=== PATIENT | male | born 1975 | race Caucasian/White ===

== ENCOUNTER 2019-06-06 22:30 | Inpatient (IN) | payer SELFPAY ==
[2019-06-06 22:40] VITALS: BMI 52.8
[2019-06-06] MEDS ORDERED: morphine SULFATE 4 MG/ML VIAL IVPUSH ONE (22:46)
[2019-06-06 22:54] LABS: HYALINE CASTS 9 /lpf (0-8); PH,URINE 8.5 (5.0-8.0); URINE APPEARANCE TURBID; URINE BACTERIA 10.3 /hpf (NEGATIVE); URINE BILIRUBIN NEGATIVE (NEGATIVE); URINE COLOR RED; URINE GLUCOSE (UA) NEGATIVE (NEGATIVE); URINE KETONE NEGATIVE (NEGATIVE); URINE LEUK ESTERASE 1+ (NEGATIVE); URINE NITRITE NEGATIVE (NEGATIVE); URINE PROTEIN 2+ (NEGATIVE); URINE RBC 2111 /hpf (0-4); URINE WBC 5 /hpf (0-5)
[2019-06-06 23:03] LABS: BASO % 0.3 % (0-2.0); HEMOGLOBIN 10.6 GM/dL (11.7-16.9); LYMPH % 6.8 % (8-40); MCH 27.1 pg (25.7-33.7); MCHC 33.1 g/dl (32.0-35.9); MEAN CELL VOLUME 81.8 fl (80-96); MEAN PLT VOLUME 7.7 fl (7.5-11.1); MONO % 9.8 % (3.8-10.2); NEUT % 83.1 % (42.8-82.8); PLATELET COUNT 286 K/MM3 (134-434); RBC 3.91 M/mm3 (4.00-5.60); RDW 16.1 % (11.9-15.9)
[2019-06-06] MEDS ORDERED: morphine SULFATE 4 MG/ML VIAL ONE ×2 (23:03→23:40)
--- NOTE | 2019-06-06 23:11 | PDOC ---
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 Patient was in [place] 2 days ago on vacation and was found to have a L 9mm obstructing renal calculus, was admitted to hospital for L ureteral stent placement and lithotripsy. Discharged on Tylenol, Percocet, flomax, Ditropan, and Keflex and advised that stone fragments may continue to be passed. Returned to [place] today and suddenly began experiencing LLQ and flank pain with gross hematuria, took pain medications without effect and presented to ED. 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 Given Vit K and has not taken Coumadin in last 2 days, scheduled to be switched to lovenox tomorrow Denies headache, chest pain, SOB, nausea, vomiting, constipation, diarrhea. Allergy to NSAIDs, anaphylaxis. Acute dystonic reaction to Reglan. <Stewart Javier - Last Filed: 06/07/19 19:29> - General Chief Complaint: Pain, Acute Stated Complaint: KIDNEY STONES Time Seen by Provider: 06/06/19 22:32 Past History <Susanne Man - Last Filed: 06/07/19 02:39> - Past Medical History COPD: No - Surgical History Cholecystectomy: Yes - Immunization History Td Vaccination: Yes TDAP Vaccination: Yes Immunization Up to Date: Yes - Suicide/Smoking/Psychosocial Hx Smoking History: Current every day smoker Cigars Per Day: 1 Information on smoking cessation initiated: No Hx Alcohol Use: No Drug/Substance Use Hx: No <Stewart Javier - Last Filed: 06/07/19 19:29> - Past Medical History Allergies/Adverse Reactions: Allergies Allergy/AdvReac Type Severity Reaction Status Date / Time NSAIDS (Non-Steroidal Allergy Severe Difficulty Verified 06/06/19 22:49 Anti-Inflamma Breathing metoclopramide [From Reglan] AdvReac Mild Verified 06/06/19 22:49 Home Medications: Ambulatory Orders Cephalexin [Keflex] 750 mg PO BID 06/07/19 Oxybutynin Chloride [Ditropan -] 5 mg PO DAILY 06/07/19 Oxycodone HCl/Acetaminophen [Percocet 5-325 mg Tablet] 1 tab PO Q6H 06/07/19 Tamsulosin HCl [Flomax] 0.4 mg PO DAILY 06/07/19 Warfarin Sodium [Coumadin] 7.5 mg PO DAILY 06/07/19 Review of Systems - Review of Systems Constitutional: Yes: Diaphoresis. No: Chills, Fever, Weakness HEENTM: No: Blurred Vision, Ear Discharge, Nose Congestion, Hearing Loss Respiratory: No: Cough, Orthopnea, Shortness of Breath, Wheezing Cardiac (ROS): No: Chest Pain, Edema, Lightheadedness, Palpitations ABD/GI: No: Constipated, Diarrhea, Nausea, Vomiting : Yes: Dysuria, Flank Pain, Hematuria. No: Discharge Musculoskeletal: No: Back Pain, Muscle Weakness, Neck Pain Integumentary: No: Symptoms Reported Neurological: No: Symptoms reported All Other Systems: Reviewed and Negative <Stewart Javier - Last Filed: 06/07/19 19:29> *Physical Exam - Vital Signs Last Vital Signs Temp Pulse Resp BP Pulse Ox 99.1 F 62 18 142/93 97 06/06/19 22:36 06/07/19 01:35 06/07/19 01:35 06/07/19 01:35 06/07/19 01:35 <Susanne Man - Last Filed: 06/07/19 02:39> - Vital Signs Last Vital Signs Temp Pulse Resp BP Pulse Ox 99.1 F 61 20 141/75 98 06/06/19 22:36 06/06/19 22:36 06/06/19 22:36 06/06/19 22:36 06/06/19 22:36 - Physical Exam General Appearance: Yes: Nourished, Appropriately Dressed, Moderate Distress, Obese HEENT: positive: EOMI, Normal ENT Inspection, Normal Voice, Symmetrical, Pharynx Normal, Hearing Grossly Normal. negative: Scleral Icterus (R), Scleral Icterus (L), Excessive drooling Neck: positive: Trachea midline, Supple. negative: Tender, Lymphadenopathy (R) , Lymphadenopathy (L) Respiratory/Chest: positive: Lungs Clear, Normal Breath Sounds. negative: Chest Tender, Respiratory Distress Cardiovascular: positive: Regular Rhythm, Regular Rate, Edema Gastrointestinal/Abdominal: positive: Normal Bowel Sounds, Tender (L CVA tenderness that extends to the L groin. Non-tender R side, negative Guillory's Sign, no organomegaly.), Soft, Organomegaly Musculoskeletal: positive: CVA Tenderness (L) Extremity: positive: Normal Capillary Refill, Normal Inspection, Normal Range of Motion. negative: Tender Integumentary: positive: Normal Color, Dry, Warm Neurologic: positive: Fully Oriented, Alert, Normal Mood/Affect, Normal Response <Stewart Javier - Last Filed: 06/07/19 19:29> ED Treatment Course - LABORATORY CBC & Chemistry Diagram: 06/06/19 22:58 06/06/19 22:58 - ADDITIONAL ORDERS Additional order review: Laboratory Results 06/06/19 06/06/19 06/06/19 22:58 22:58 22:44 PT with INR INR Sodium 140 Potassium 4.1 Chloride 106 Carbon Dioxide 28 Anion Gap 6 L BUN 13.2 Creatinine 0.9 Est GFR (CKD-EPI)AfAm 119.13 Est GFR (CKD-EPI)NonAf 102.79 Random Glucose 136 H Calcium 9.0 Total Bilirubin 0.2 AST 24 ALT 38 Alkaline Phosphatase 109 Total Protein 7.1 Albumin 3.7 Lipase 123 Urine Color Red Urine Appearance Turbid Urine pH 8.5 H Ur Specific [place] 1.020 Urine Protein 2+ H Urine Glucose (UA) Negative Urine Ketones Negative Urine Blood 3+ H Urine Nitrite Negative Urine Bilirubin Negative Urine Urobilinogen 1.0 Ur Leukocyte Esterase 1+ H Urine WBC (Auto) 5 Urine RBC (Auto) 2111 Urine Casts (Auto) 9 U Epithel Cells (Auto) 6.0 U Sm Round Cell (Auto) None seen Urine Bacteria (Auto) 10.3 06/06/19 22:40 PT with INR 11.80 INR 1.00 Sodium Potassium Chloride Carbon Dioxide Anion Gap BUN Creatinine Est GFR (CKD-EPI)AfAm Est GFR (CKD-EPI)NonAf Random Glucose Calcium Total Bilirubin AST ALT Alkaline Phosphatase Total Protein Albumin Lipase Urine Color Urine Appearance Urine pH Ur Specific [place] Urine Protein Urine Glucose (UA) Urine Ketones Urine Blood Urine Nitrite Urine Bilirubin Urine Urobilinogen Ur Leukocyte Esterase Urine WBC (Auto) Urine RBC (Auto) Urine Casts (Auto) U Epithel Cells (Auto) U Sm Round Cell (Auto) Urine Bacteria (Auto) 06/06/19 22:58 RBC 3.91 L MCV 81.8 MCHC 33.1 RDW 16.1 H MPV 7.7 Neutrophils % 83.1 H Lymphocytes % 6.8 L Monocytes % 9.8 Eosinophils % 0.0 Basophils % 0.3 - Medications Given in the ED: ED Medications Discontinued Medications Generic Name Dose Route Start Last Admin Trade Name Traci PRN Reason Stop Dose Admin Acetaminophen 1,000 mg 06/07/19 01:42 06/07/19 01:50 Ofirmev Injection - IVPB 06/07/19 01:43 1,000 mg ONCE ONE Administration Hydromorphone HCl 1 mg 06/07/19 00:54 06/07/19 01:00 Dilaudid Injection - IVPUSH 06/07/19 00:55 1 mg ONCE ONE Administration Hydromorphone HCl 2 mg 06/07/19 02:24 06/07/19 02:30 Dilaudid Injection - IVPB 06/07/19 02:25 2 mg ONCE ONE Administration Ceftriaxone Sodium 1,000 mg/ 50 mls @ 100 mls/hr 06/07/19 01:39 06/07/19 01: 48 Dextrose IVPB 06/07/19 02:08 100 mls/hr ONCE ONE Administration Morphine Sulfate 4 mg 06/06/19 22:46 06/06/19 23:05 Morphine Sulfate IVPUSH 06/06/19 22:47 4 mg ONCE ONE Administration Morphine Sulfate 4 mg 06/06/19 23:39 06/06/19 23:48 Morphine Injection - IVPUSH 06/06/19 23:40 4 mg ONCE ONE Administration <Susanne Man - Last Filed: 06/07/19 02:39> - LABORATORY CBC & Chemistry Diagram: 06/06/19 22:58 06/06/19 22:58 - ADDITIONAL ORDERS Additional order review: Laboratory Results 06/06/19 22:44 Urine Color Red Urine Appearance Turbid Urine pH 8.5 H Ur Specific Brent 1.020 Urine Protein 2+ H Urine Glucose (UA) Negative Urine Ketones Negative Urine Blood 3+ H Urine Nitrite Negative Urine Bilirubin Negative Urine Urobilinogen 1.0 Ur Leukocyte Esterase 1+ H Urine WBC (Auto) 5 Urine RBC (Auto) 2111 Urine Casts (Auto) 9 U Epithel Cells (Auto) 6.0 Urine Bacteria (Auto) 10.3 - RADIOLOGY Radiology Studies Ordered: Category Date Time Status SPIRAL- RENAL-STONE CT [CT] Stat CT Scan 06/06/19 22:46 Ordered <Stewart Javier - Last Filed: 06/07/19 19:29> Medical Decision Making - Medical Decision Making 06/06/19 23:03 Liam Son is a 44yo male with 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 Patient presenting with hematuria and L flank and abdominal pain after L renal stone lithostripsy and L ureteral stent placement concerning for repeat obstructing stone vs. stent malfunction vs. traumatic injury during stent placement. Evaluating with CMP, CBC, lipase, UA/UC, and spiral renal CT. Gave 4mg IV morphine for pain 06/06/19 23:50 Gave second 4mg IV morphine for pain before CT scan. 06/07/19 01:07 CT scan shows L ureteral stent in place with unobstructing L renal stone with some L perinephric stranding possibly indicating ureteritis. Given 1mg Dilaudid for 10/[address] scan. 06/07/19 01:[address] Tinajero with Urology, unclear about etiology of pain but admit for observation for bleeding. Recommendation is to not restart anticoagulation given bleeding. Starting 1mg IV ceftriaxone for concern for ureteritis. Starting 1000mg IV acetaminophen for intractable pain. 06/07/19 02:[address] Michel with medicine team for admission under Dr. Prater with urology f/u tomorrow. <Stewart Javier - Last Filed: 06/07/19 19:29> *DC/Admit/Observation/Transfer - Discharge Dispostion Decision to Admit order: Yes <Susanne Man - Last Filed: 06/07/19 02:39> <Stewart Javier - Last Filed: 06/07/19 19:29> Diagnosis at time of Disposition: Abdominal pain Qualifiers: Abdominal location: left lower quadrant Qualified Code(s): R10.32 - Left lower quadrant pain Hematuria Qualifiers: Hematuria type: gross Qualified Code(s): R31.0 - Gross hematuria - Discharge Dispostion Condition at time of disposition: Fair
[2019-06-06 23:35] LABS: PROTHROMBIN TIME (PATIENT) 11.8 SEC (9.7-13.0)
[2019-06-06 23:37] LABS: ALBUMIN 3.7 g/dl (3.4-5.0); BILIRUBIN,TOTAL 0.2 mg/dL (0.2-1); BLOOD UREA NITROGEN 13.2 mg/dL (7-18); CREATININE 0.9 mg/dL (0.55-1.3); POTASSIUM 4.1 mmol/L (3.5-5.1); TOT PROT 7.1 g/dl (6.4-8.2)
[2019-06-06] MEDS ORDERED: morphine CARPU-JECT 4 MG/1 ML DISP.SYRIN IVPUSH ONE (23:39)
[2019-06-07] MEDS ORDERED: HYDROmorphone HCL CARPU-JECT 2 MG/1 ML DISP.SYRIN IVPUSH ONE (00:54)
[2019-06-07] MEDS ORDERED: HYDROmorphone HCl 2 MG/ML VIAL ONE ×2 (00:58→02:27)
--- NOTE | 2019-06-07 01:25 | PDOC ---
Documentation entered by Laith Trujillo SCRIBE, acting as scribe for Susanne Man MD. Susanne Man MD: This documentation has been prepared by the Ronnie nevarez Xhesika, SCRIBE, under my direction and personally reviewed by me in its entirety. I confirm that the documentation accurately reflects all work, treatment, procedures, and medical decision making performed by me. Attending Attestation - Resident Resident Name: YayaStewart - ED Attending Attestation I have performed the following: I have examined & evaluated the patient, The case was reviewed & discussed with the resident, I agree w/resident's findings & plan, Exceptions are as noted - HPI HPI: 06/06/19 23:02 The patient is a 44 year old male with a significant PMH of DVT/PE (not anticoagulated due to procedure) who presents to the emergency department s/p kidney stone complications. Patient states he was in [place] when he was seen in the ED, was told he had a 9mm kidney stone and had a L ureteral stent placement. Patient was sent home with improvement of symptoms (taking tylenol and percocet). Patient notes he got home today and notes he has been endorsing hematuria. The patient denies chest pain, shortness of breath, headache and dizziness. Denies fever, chills, cough, nausea, vomiting, diarrhea and constipation. Denies dysuria, frequency, urgency. Allergies: NSAIDS, metoclopramide 06/07/19 01:22 - Physicial Exam PE: 06/07/19 01:20 awake alert lungs clear bilat heart rrrr no mrg abd soft nt nd ext wwp. left cva tenderness. nuero alert oriented x 3 - Medical Decision Making 06/07/19 01:21 44 yo male h/o renal colic, s/p lithotripsy and stent placement yesterday in [place] here with c/o pain , hematuria. plan ct r/o stent dislodged, ua / pt ua with hematuria. ct with stent in place, no stone. pt with significant pain in ed, requiring narcotics. on ct mild irritation stranding around ureter, dilation ureter, renal sont no ureteral stone. air in bladder. plan consult urology, reassess pain.
[2019-06-07] MEDS ORDERED: CEFTRIAXONE 1,000 MG in DEXTROSE 5%-WATER - 50 ML IVPB ONE (01:39)
[2019-06-07] MEDS ORDERED: ACETAMINOPHEN 1000 MG/100 ML VIAL (NON FORMULARY) IVPB ONE (01:42)
[2019-06-07] MEDS ORDERED: ACETAMINOPHEN INJECTION 100 ML IVPB ONE (01:44)
[2019-06-07] MEDS ORDERED: CEFTRIAXONE 1 GM/50 ML BAG ONE (01:44)
[2019-06-07] MEDS ORDERED: HYDROmorphone HCL CARPU-JECT 2 MG/1 ML DISP.SYRIN IVPB ONE (02:24)
--- NOTE | 2019-06-07 02:48 | PN ---
Teaching Attending Note Name of Resident: Nettie Michel ATTENDING PHYSICIAN STATEMENT I saw and evaluated the patient. I reviewed the resident's note and discussed the case with the resident. I agree with the resident's findings and plan as documented. SUBJECTIVE: Patient is a 44 year old man with PMH of NSAID allergy, bilateral DVT and PE ( on coumadin) who presents with left flank pain and hematuria. Recently diagnosed with ureteral stone and had a stent placed. Patient was in [place] 2 days ago on vacation and was found to have a left 9mm obstructing renal calculus. Had ureteral stent placement and lithotripsy. Discharged on Tylenol, Percocet, Flomax, Ditropan, and Keflex and advised that stone fragments may continue to be passed. Returned to [place] today and suddenly began experiencing LLQ and flank pain with gross hematuria, took pain medications without effect and presented to ER. Has PMH bilateral DVT with PE ?due to work-related immobility. 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 Denies SOB or leg pain at this time. Given Vit K and has not taken Coumadin in last 2 days, scheduled to be switched to lovenox tomorrow. Has family history of thalassemia, uric acid stone and premature CAD. Denies headache, chest pain, SOB, nausea, vomiting , constipation or diarrhea. OBJECTIVE: Alert and in a lot of pain Vital Signs Period Temp Pulse Resp BP Sys/Gordon Pulse Ox Last 24 Hr 99.1 F 61-62 18-20 141-142/75-93 97-98 HEENT: No Jaundice, eye redness or discharge, PERRLA, EOMI. Normocephalic, atraumatic. External ears are normal and hearing is grossly intact. No nasal discharge. Neck: Supple, nontender. No palpable adenopathy or thyromegaly. No JVD Chest: Good effort. Clear to auscultation and percussion. Heart: Regular. No S3, rub or murmur Abdomen: Not distended, soft, left CVAT and no HSM. No rebound or guarding. Normal bowel sounds. Ext: Peripheral pulses intact. No leg edema. Skin: Warm and dry. No petechiae, rash or ecchymosis. Neuro: Alert. Oriented x3. CN 2-12 grossly intact. Sensation grossly intact in all four extremities and DTR are symmetric. Psych: Appropriate mood and affect. Good insight. Home Medications Medication Instructions Recorded Cephalexin [Keflex] 750 mg PO BID 06/07/19 Oxybutynin Chloride [Ditropan -] 5 mg PO DAILY 06/07/19 Oxycodone HCl/Acetaminophen 1 tab PO Q6H 06/07/19 [Percocet 5-325 mg Tablet] Tamsulosin HCl [Flomax] 0.4 mg PO DAILY 06/07/19 Warfarin Sodium [Coumadin] 7.5 mg PO DAILY 06/07/19 Abnormal Lab Results 06/06/19 06/06/19 06/06/19 22:44 22:58 22:58 RBC 3.91 L Hgb 10.6 L Hct 32.0 L RDW 16.1 H Neutrophils % 83.1 H Lymphocytes % 6.8 L Anion Gap 6 L Random Glucose 136 H Urine pH 8.5 H Urine Protein 2+ H Urine Blood 3+ H Ur Leukocyte Esterase 1+ H ASSESSMENT AND PLAN: 1. Hematuria/Kidney stone disease - Will treat with IV NS, flomax, dilaudid for pain control and keep him NPO. Will treat wit IV Rocephin pending urine culture. EKG shows NSR with LVH, prolonged QTc and flat t waves in the inferolateral leads. Initial troponin is negative - will repeat EKG and troponin to rule out ACS in view of FH of premature CAD. Urology consult pending. Will continue to hold coumadin that he was getting for remote DVT and PE. Restart anticoagulation as soon as is clinically safe. Upon discharge will refer to team supervisor to do work up for stone disease risk factor. 2. Anemia - Likely due to hematuria. Will do basic anemia work up including serial stool guaiacs, reticulocyte count and iron studies. Would benefit from IV iron once intensity of iron deficiency is established. 3. Morbid Obesity Counseled on the risks associated with obesity. Will provide patient all the necessary assistance, counseling and positive reinforcement to facilitate weight loss. Consult executive chef. 4. DVT prophylaxis - SCD, early ambulation. 5. Advance directives - Full code
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
[2019-06-07] MEDS ORDERED: morphine CARPU-JECT 4 MG/1 ML DISP.SYRIN IVPUSH PRN (04:50)
[2019-06-07] MEDS ORDERED: MORPHINE SULFATE 2 MG/ML VIAL IVPUSH PRN ×2 (04:54→06:14)
[2019-06-07] MEDS ORDERED: HYDROmorphone HCl 2 MG/ML VIAL IVPUSH ONE (05:10)
[2019-06-07] MEDS ORDERED: TAMSULOSIN HCL 0.4 MG CAP PO ONE (05:11)
[2019-06-07] MEDS: SODIUM CHLORIDE 1,000 ML IV SCH (05:27)
[2019-06-07] MEDS ORDERED: HYDROmorphone HCl 2 MG/ML VIAL IVPB PRN (08:53)
--- NOTE | 2019-06-07 09:25 | RAPID ---
Physical Examination Vital Signs: Vital Signs Temperature 97.6 F 06/07/19 04:46 Pulse Rate 59 L 06/07/19 04:46 Respiratory Rate 22 H 06/07/19 04:46 Blood Pressure 144/87 06/07/19 04:46 O2 Sat by Pulse Oximetry (%) 98 06/07/19 03:41 Labs: CBC, BMP 06/06/19 22:58 06/06/19 22:58 Rapid Response - Rapid Response Assessment: SUBJECTIVE: 44 y.o. M, PMH bilateral DVT and PE (currently off coumadin). Presented for L flank pain, hematuria, NBNB emesis x 3. S/p JJ stent placement a few days ago for L obstructing renal calculus. Rapid response paged overhead 8:45am. Code team responded immediately. On arrival, patient was sitting up in a chair. He was breathing rapidly and stated he was in pain. Nurse says intractable pain has been present all night. Patient received 8mg morphine, 1g Ofirmev, 3mg Dilaudid since admission with no relief of pain. OBJECTIVE: General: AOx3. Sitting up in chair. In distress, gripping L side Resp: CTABL. Tachypnic. Symmetrical chest rise. No use of accessory muscles of breathing CV: S1S2 hears. No MRG. Abd: Soft NTND. BS+ Extr: 2+ pulses well perfused. No skin changes. No periph edema. Vitals on arrival: BP 148/112 HR 80 T98F RR 30 SaO2 96% RA PLAN: #Pain control -Dilaudid 1mg given -Afebrile, Normocardic -Monitor vitals -Filaudid 1mg q3h PRN -Primary care team notified
[2019-06-07] MEDS ORDERED: OXYBUTYNIN CHLORIDE 5 MG TABLET PO SCH (10:00)
[2019-06-07] MEDS: HYDROmorphone HCl 2 MG/ML VIAL IVPUSH PRN ×4 (12:00→21:00)
--- NOTE | 2019-06-07 19:10 | HOSP ---
Subjective - Review of Symptoms Events since last encounter: Patient is feeling better on IV Dilaudid. no fever or chills, no shortness of breath. Vital Signs Temperature 98.2 F 06/07/19 14:07 Pulse Rate 68 06/07/19 14:07 Respiratory Rate 20 06/07/19 14:07 Blood Pressure 154/96 06/07/19 14:07 O2 Sat by Pulse Oximetry (%) 99 06/07/19 09:00 CBCD WBC 8.0 K/mm3 (4.0-10.0) 06/06/19 22:58 RBC 3.91 M/mm3 (4.00-5.60) L 06/06/19 22:58 Hgb 10.6 GM/dL (11.7-16.9) L 06/06/19 22:58 Hct 32.0 % (35.4-49) L 06/06/19 22:58 MCV 81.8 fl (80-96) 06/06/19 22:58 MCHC 33.1 g/dl (32.0-35.9) 06/06/19 22:58 RDW 16.1 % (11.9-15.9) H 06/06/19 22:58 Plt Count 286 K/MM3 (134-434) 06/06/19 22:58 MPV 7.7 fl (7.5-11.1) 06/06/19 22:58 CMP Sodium 140 mmol/L (136-145) 06/06/19 22:58 Potassium 4.1 mmol/L (3.5-5.1) 06/06/19 22:58 Chloride 106 mmol/L (98-107) 06/06/19 22:58 Carbon Dioxide 28 mmol/L (21-32) 06/06/19 22:58 Anion Gap 6 MMOL/L (8-16) L 06/06/19 22:58 BUN 13.2 mg/dL (7-18) 06/06/19 22:58 Creatinine 0.9 mg/dL (0.55-1.3) 06/06/19 22:58 Random Glucose 136 mg/dL (74-106) H 06/06/19 22:58 Calcium 9.0 mg/dL (8.5-10.1) 06/06/19 22:58 Total Bilirubin 0.2 mg/dL (0.2-1) 06/06/19 22:58 AST 24 U/L (15-37) 06/06/19 22:58 ALT 38 U/L (13-61) 06/06/19 22:58 Alkaline Phosphatase 109 U/L (45-117) 06/06/19 22:58 Total Protein 7.1 g/dl (6.4-8.2) 06/06/19 22:58 Albumin 3.7 g/dl (3.4-5.0) 06/06/19 22:58 Current Medications Generic Name Dose Route Start Last Admin Trade Name Freq PRN Reason Stop Dose Admin Hydromorphone HCl 2 mg 06/07/19 14:31 06/07/19 17:58 Dilaudid Vial - IVPUSH 2 mg Q3H PRN Administration PAIN LEVEL 6-10 Sodium Chloride 1,000 mls @ 75 mls/hr 06/07/19 04:45 06/07/19 05:27 Normal Saline - IV 75 mls/hr ASDIR JOSELO Administration Physical Examination Vital Signs: Vital Signs Temperature 98.2 F 06/07/19 14:07 Pulse Rate 68 06/07/19 14:07 Respiratory Rate 20 06/07/19 14:07 Blood Pressure 154/96 06/07/19 14:07 O2 Sat by Pulse Oximetry (%) 99 06/07/19 09:00 Labs: CBC, BMP 06/06/19 22:58 06/06/19 22:58
[2019-06-07] MEDS ORDERED: HYDROmorphone HCl 2 MG/ML VIAL IVPB ONE (22:19)
[2019-06-08] MEDS ORDERED: ACETAMINOPHEN 1000 MG/100 ML VIAL (NON FORMULARY) IVPB ONE (00:56)
[2019-06-08] MEDS ORDERED: HYDROmorphone HCl 2 MG/ML VIAL IVPUSH ONE (01:08)
[2019-06-08] MEDS: HYDROmorphone HCl 2 MG/ML VIAL IVPUSH PRN ×6 (06:00→17:51)
[2019-06-08] MEDS: SODIUM CHLORIDE 1,000 ML IV SCH (06:05)
[2019-06-08 07:48] LABS: BASO % 0.9 % (0-2.0); EOS % 3.8 % (0-4.5); HEMATOCRIT 31.4 % (35.4-49); HEMOGLOBIN 10.4 GM/dL (11.7-16.9); LYMPH % 17.6 % (8-40); MCH 27.2 pg (25.7-33.7); MEAN CELL VOLUME 82.4 fl (80-96); MEAN PLT VOLUME 7.8 fl (7.5-11.1); MONO % 15.4 % (3.8-10.2); NEUT % 62.3 % (42.8-82.8); PLATELET COUNT 280 K/MM3 (134-434); RBC 3.81 M/mm3 (4.00-5.60); RDW 16.3 % (11.9-15.9); WHITE BLOOD COUNT 5.4 K/mm3 (4.0-10.0)
[2019-06-08 08:00] LABS: INR 0.94 (0.83-1.09); PROTHROMBIN TIME (PATIENT) 11.1 SEC (9.7-13.0)
[2019-06-08 08:03] LABS: ACTIVATED PTT 25.8 SECONDS (25.2-36.5)
[2019-06-08 08:28] LABS: ALBUMIN 3.6 g/dl (3.4-5.0); BILIRUBIN,TOTAL 0.2 mg/dL (0.2-1); BLOOD UREA NITROGEN 14.8 mg/dL (7-18); CALCIUM 8.4 mg/dL (8.5-10.1); CREATININE 0.8 mg/dL (0.55-1.3); MAGNESIUM 2.3 mg/dL (1.8-2.4); POTASSIUM 4.1 mmol/L (3.5-5.1); TOT PROT 6.6 g/dl (6.4-8.2)
[2019-06-08] MEDS ORDERED: DEXTROSE 5%-WATER 100 ML IVPB ONE (09:05)
[2019-06-08] MEDS: CEFTRIAXONE 2 GM in DEXTROSE 5%-WATER 100 ML IVPB SCH (09:12)
--- NOTE | 2019-06-08 10:55 | PN ---
Physical Exam: SUBJECTIVE: Patient seen and examined at bedside. Pt's pain improved from yesterday. OBJECTIVE: Vital Signs Period Temp Pulse Resp BP Sys/Gordon Pulse Ox Last 24 Hr 98 F-98.2 F 68-86 16-20 122-154/73-96 99-99 GENERAL: The patient is awake, alert, and fully oriented, in no acute distress. HEAD: Normal with no signs of trauma. NECK: supple. LUNGS: Breath sounds equal, clear to auscultation bilaterally, no wheezes, no crackles, no accessory muscle use. HEART: Regular rate and rhythm, S1, S2 without murmur, rub or gallop. ABDOMEN: Soft, nontender, nondistended, normoactive bowel sounds, no guarding, no rebound. LT CVA tenderness ill present EXTREMITIES: 2+ pulses, warm, well-perfused, no edema. NEUROLOGICAL: Cranial nerves II through XII grossly intact. Normal speech, gait not observed. PSYCH: Normal mood, normal affect. SKIN: Warm, dry, no rashes or lesions noted Laboratory Results - last 24 hr 06/08/19 06/08/19 06/08/19 06:30 06:30 06:30 WBC 5.4 RBC 3.81 L Hgb 10.4 L Hct 31.4 L MCV 82.4 MCH 27.2 MCHC 33.0 RDW 16.3 H Plt Count 280 MPV 7.8 Absolute Neuts (auto) 3.4 Neutrophils % 62.3 D Lymphocytes % 17.6 D Monocytes % 15.4 H Eosinophils % 3.8 D Basophils % 0.9 Nucleated RBC % 0 PT with INR 11.10 INR 0.94 PTT (Actin FS) 25.8 Sodium 140 Potassium 4.1 Chloride 106 Carbon Dioxide 28 Anion Gap 6 L BUN 14.8 Creatinine 0.8 Est GFR (CKD-EPI)AfAm 125.04 Est GFR (CKD-EPI)NonAf 107.88 Random Glucose 91 Calcium 8.4 L Phosphorus 4.0 Magnesium 2.3 Total Bilirubin 0.2 AST 22 ALT 35 Alkaline Phosphatase 100 Total Protein 6.6 Albumin 3.6 Active Medications Generic Name Dose Route Start Last Admin Trade Name Freq PRN Reason Stop Dose Admin Hydromorphone HCl 2 mg 06/07/19 14:31 06/08/19 09:02 Dilaudid Vial - IVPUSH 2 mg Q3H PRN Administration PAIN LEVEL 6-10 Sodium Chloride 1,000 mls @ 75 mls/hr 06/07/19 04:45 06/08/19 06:05 Normal Saline - IV Not Given ASDIR JOSELO Ceftriaxone Sodium 2 gm/ 100 mls @ 200 mls/hr 06/08/19 10:00 06/08/19 09:12 Dextrose IVPB 200 mls/hr DAILY JOSELO Administration Protocol ASSESSMENT/PLAN: This is a 44 y/o M with a PMH of b/l PE's and renal calculi who presented to the ED for new onset gross hematuria and dysuria s/p laser lithotripsy and JJ stent in [place]. #Acute hematuria due to renal calculus - s/p JJ stent - CT abd pelvis in [place] showing L 1 mm nonobstructive renal calculus in RT lower pole, no hydro. - uro consulted (Dr. Ward) awaiting recs. - still has gross hematuria off all AC, PT/INR ordered, will bridge him post op - IV ceftriaxone 2g daily - IV NS 75cc/hr - dilaudid for pain - monitor H&H, vitals #PE - hold lovenox and coumadin for now. - PT/INR ordered - will continue post op. #FEN- IV NS 75cc/hr, monitoring lytes, regular diet Visit type - Emergency Visit Emergency Visit: Yes ED Registration Date: 06/07/19 Care time: The patient presented to the Emergency Department on the above date and was hospitalized for further evaluation of their emergent condition. - New Patient This patient is new to me today: No - Critical Care Critical Care patient: No - Discharge Referral Referred to [facility] No ATTENDING PHYSICIAN STATEMENT I saw and evaluated the patient. I reviewed the resident's note and discussed the case with the resident. I agree with the resident's findings and plan as documented. SUBJECTIVE: OBJECTIVE: ASSESSMENT AND PLAN:
--- NOTE | 2019-06-08 11:37 | EKG ---
Test Reason : Blood Pressure : / mmHG Vent. Rate : 061 BPM Atrial Rate : 061 BPM P-R Int : 166 ms QRS Dur : 090 ms QT Int : 460 ms P-R-T Axes : 009 002 003 degrees QTc Int : 463 ms NORMAL SINUS RHYTHM VOLTAGE CRITERIA FOR LEFT VENTRICULAR HYPERTROPHY NONSPECIFIC T WAVE ABNORMALITY PROLONGED QT ABNORMAL ECG NO PREVIOUS ECGS AVAILABLE Confirmed by HOWARD LIN MD ([id number]) on 06/08/2019 11:37:41 AM Referred By: Confirmed By:HOWARD LIN MD
[2019-06-08] MEDS ORDERED: ENOXAPARIN NA (PORCINE) 80 MG/0.8 ML DISP.SYRIN SQ ONE (19:00)
--- NOTE | 2019-06-08 19:06 | PN ---
Teaching Attending Note Name of Resident: Thang Ward ATTENDING PHYSICIAN STATEMENT I saw and evaluated the patient. I reviewed the resident's note and discussed the case with the resident. I agree with the resident's findings and plan as documented. SUBJECTIVE: Patient is feeling better, minimal hematuria as per patient. No tachycardia, no nausea or vomiting. asking for increase of his dilaudid. OBJECTIVE: Vital Signs Temperature 98.7 F 06/08/19 15:17 Pulse Rate 85 06/08/19 15:17 Respiratory Rate 18 06/08/19 15:17 Blood Pressure 139/63 06/08/19 15:17 O2 Sat by Pulse Oximetry (%) 98 06/08/19 09:00 CBCD WBC 5.4 K/mm3 (4.0-10.0) 06/08/19 06:30 RBC 3.81 M/mm3 (4.00-5.60) L 06/08/19 06:30 Hgb 10.4 GM/dL (11.7-16.9) L 06/08/19 06:30 Hct 31.4 % (35.4-49) L 06/08/19 06:30 MCV 82.4 fl (80-96) 06/08/19 06:30 MCHC 33.0 g/dl (32.0-35.9) 06/08/19 06:30 RDW 16.3 % (11.9-15.9) H 06/08/19 06:30 Plt Count 280 K/MM3 (134-434) 06/08/19 06:30 MPV 7.8 fl (7.5-11.1) 06/08/19 06:30 CMP Sodium 140 mmol/L (136-145) 06/08/19 06:30 Potassium 4.1 mmol/L (3.5-5.1) 06/08/19 06:30 Chloride 106 mmol/L (98-107) 06/08/19 06:30 Carbon Dioxide 28 mmol/L (21-32) 06/08/19 06:30 Anion Gap 6 MMOL/L (8-16) L 06/08/19 06:30 BUN 14.8 mg/dL (7-18) 06/08/19 06:30 Creatinine 0.8 mg/dL (0.55-1.3) 06/08/19 06:30 Random Glucose 91 mg/dL (74-106) 06/08/19 06:30 Calcium 8.4 mg/dL (8.5-10.1) L 06/08/19 06:30 Total Bilirubin 0.2 mg/dL (0.2-1) 06/08/19 06:30 AST 22 U/L (15-37) 06/08/19 06:30 ALT 35 U/L (13-61) 06/08/19 06:30 Alkaline Phosphatase 100 U/L (45-117) 06/08/19 06:30 Total Protein 6.6 g/dl (6.4-8.2) 06/08/19 06:30 Albumin 3.6 g/dl (3.4-5.0) 06/08/19 06:30 Current Medications Generic Name Dose Route Start Last Admin Trade Name Freq PRN Reason Stop Dose Admin Enoxaparin Sodium 160 mg 06/08/19 19:00 Lovenox - SQ 06/09/19 18:59 ONCE JOSELO Hydromorphone HCl 2 mg 06/07/19 14:31 06/08/19 17:51 Dilaudid Vial - IVPUSH 2 mg Q3H PRN Administration PAIN LEVEL 6-10 Sodium Chloride 1,000 mls @ 75 mls/hr 06/07/19 04:45 06/08/19 06:05 Normal Saline - IV Not Given ASDIR JOSELO Ceftriaxone Sodium 2 gm/ 100 mls @ 200 mls/hr 06/08/19 10:00 06/08/19 09:12 Dextrose IVPB 200 mls/hr DAILY JOSELO Administration Protocol Home Medications Medication Instructions Recorded Cephalexin [Keflex] 750 mg PO BID 06/07/19 Oxybutynin Chloride [Ditropan -] 5 mg PO DAILY 06/07/19 Oxycodone HCl/Acetaminophen 1 tab PO Q6H 06/07/19 [Percocet 5-325 mg Tablet] Tamsulosin HCl [Flomax] 0.4 mg PO DAILY 06/07/19 Warfarin Sodium [Coumadin] 7.5 mg PO DAILY 06/07/19 PE: per resident's note ASSESSMENT AND PLAN: This is a 44 y/o M with a PMHx of b/l PE's and renal calculi who presented to the ED for new onset gross hematuria and dysuria s/p laser lithotripsy and JJ stent that was done in [place], as per patient. No gross hematuria today #patient was admitted for acute hematuria due to renal calculus, no hematuria is noted today s/p JJ stent, urology is consulted possible procedure in am. - CT abd pelvis in [place] showing L 1 mm nonobstructive renal calculus in RT lower pole, no hydro. Dr. Ed Quijano on the case - IV ceftriaxone 2g daily - IV NS 75cc/hr - dilaudid for pain - H&H is stable #Hx PE , will give one dose of lovenox, ordered CTA to r/o PE - PT/INR in am Follow CTA result, received one dose of Lovenox 160mg , duplex of lower extremities r/o DVT NPO after midnight DVT Px: Lovenox
--- NOTE | 2019-06-08 20:59 | PN ---
Progress Note (short form) - Note Progress Note: UROLOGY NOTE: 44 y/o M with presumed h/o urolithiasis. Pt has left jj stent in place which appears to be chronic. CT reveals no hydro or stones. Pt urologically clear for discharge. To follow with PMD.
[2019-06-08] MEDS ORDERED: HYDROmorphone HCl 2 MG/ML VIAL IVPB PRN (21:14)
[2019-06-08] MEDS ORDERED: HYDROmorphone HCL CARPU-JECT 2 MG/1 ML DISP.SYRIN IVPUSH SCH (21:15)
[2019-06-09] MEDS ORDERED: DEXTROSE 5%-WATER 100 ML IVPB ONE (09:04)
[2019-06-09] MEDS: CEFTRIAXONE 2 GM in DEXTROSE 5%-WATER 100 ML IVPB SCH (09:40)
[2019-06-09] MEDS: SODIUM CHLORIDE 1,000 ML IV SCH (09:40)
[2019-06-09] MEDS ORDERED: HYDROmorphone HCl 2 MG/ML VIAL IVPB ONE ×2 (13:00→16:36)
--- NOTE | 2019-06-09 13:45 | DS ---
Physical Exam: SUBJECTIVE: Patient seen and examined. He reports he is still having hematuria and left flank pain. OBJECTIVE: Vital Signs Period Temp Pulse Resp BP Sys/Gordon Pulse Ox Last 24 Hr 98.7 F 85 18-18 139/63 PHYSICAL EXAM GENERAL: The patient is awake, alert, and fully oriented, in no acute distress. LUNGS: Breath sounds equal, clear to auscultation bilaterally, no wheezes, no crackles, no accessory muscle use. HEART: Regular rate and rhythm, S1, S2 without murmur, rub or gallop. ABDOMEN: Obese, soft, nontender, nondistended, normoactive bowel sounds. BACK: (+) lower left flank tenderness EXTREMITIES: 2+ pulses, warm, well-perfused, no edema. LABS HOSPITAL COURSE: Date of Admission:06/07/19 Date of Discharge: 06/09/19 Minutes to complete discharge: 30 Discharge Summary Reason For Visit: HEMATURIA/ABDOMINAL PAIN Current Active Problems History of DVT (deep vein thrombosis) (Chronic) History of pulmonary embolus (PE) (Chronic) Morbid obesity with BMI of 50.0-59.9, adult (Chronic) Nephrolithiasis (Chronic) Left flank pain (Acute) Hematuria (Acute) Hospital Course: This is a 44 year old man with a history of kidney stones who presented to the ED with left flank pain and hematuria on June 06. He reported having had a 9 mm kidney stone while in [place]. There he underwent lithotripsy and left ureteral stent placement on June 05. After returning to [place] on June 06 , he continued to have left flank pain and hematuria and so he came to the ED. Urine was positive for 3+ blood, 2111 RBCs, and 1+ leukocyte esterase. CT scan showed a punctate non-obstructing right renal lower pole stone, left double J ureteral stent with mild dilatation and thickening of the proximal left ureter and mild stranding of the surrounding fat. He was admitted and treated with IV fluid, IV ceftriaxone, and IV Dilaudid. Urine culture grew 20,000-30,000 colonies of Lactobacillus. He was seen by Dr. Shaina Ward who felt no intervention was necessary. The patient scheduled an appointment with his urologist, Dr. Bob Zuleta, at [place] on June 09. He is being discharged home on June 09. He is advised to resume Keflex as he was taking prior to admission and to continue to hold Coumadin until urology clears him to resume it. Condition: Good - Instructions Diet, Activity, Other Instructions: You were admitted to [facility] on June 06 after coming to the ER with left flank pain and hematuria. You reported having had a 9 mm kidney stone while in [place] where you underwent lithotripsy and left ureteral stent placement on June 05. Here, urine was positive for 3+ blood, 2111 RBCs, and 1+ leukocyte esterase. CT scan showed a punctate non-obstructing right renal lower pole stone, left double J ureteral stent with mild dilatation and thickening of the proximal left ureter and mild stranding of the surrounding fat. You were treated with IV fluid, IV ceftriaxone (antibiotic), IV Dilaudid ( pain medication). You were seen by a urologist, Dr. Shaina Ward, who felt no intervention was necessary. You are being discharged home on June 09 to follow up with your urologist today. You may resume your usual diet and activity. You should continue to hold Coumadin (Warfarin) until your urologist clears you to resume it. Disposition: HOME - Home Medications Comprehensive Discharge Medication List: Ambulatory Orders Cephalexin [Keflex] 750 mg PO BID 06/07/19 Oxybutynin Chloride [Ditropan -] 5 mg PO DAILY 06/07/19 Oxycodone HCl/Acetaminophen [Percocet 5-325 mg Tablet] 1 tab PO Q6H 06/07/19 Tamsulosin HCl [Flomax] 0.4 mg PO DAILY 06/07/19 Warfarin Sodium [Coumadin] 7.5 mg PO DAILY 06/07/19 This patient is new to me today: Yes Date on this admission: 06/09/19 Emergency Visit: Yes ED Registration Date: 06/07/19 Care time: The patient presented to the Emergency Department on the above date and was hospitalized for further evaluation of their emergent condition. Critical Care patient: No - Discharge Referral Referred to [facility] No
[2019-06-09 14:44] VITALS: BP 140/90; PULSE 73; TEMP 98.1
== END 2019-06-09 17:55 | disposition home or self-care (01) | DRG 465 ==
LOC: JER 22:30 → JERBED 06-07 02:40 → J7W 06-07 04:21
PROVIDERS: ADMIT Internal Medicine; ATTEND Internal Medicine
DX: N20.0 Calculus of kidney (principal); E66.01 Morbid (severe) obesity due to excess calories; Z68.43 Body mass index [BMI] 50.0-59.9, adult; R31.9 Hematuria, unspecified; D64.9 Anemia, unspecified
CPT/HCPCS: 36415; 74176-TC; 80048; 80053; 81003; 83690; 83735; 84100; 85025; 85610; 85730; 87086; 93005; 93010; 99284-25; J0131; J7030